=== PATIENT | male | born 1985 | race African-American/Black ===

== ENCOUNTER 2017-05-30 01:37 | Emergency (ER) | payer SELFPAY | END 2017-05-30 02:02 | disposition home or self-care (01) | LOC: NAV ERS 01:37 | DX: S39.012A Strain of muscle, fascia and tendon of lower back, initial encounter (principal); I10 Essential (primary) hypertension; Z79.899 Other long term (current) drug therapy; X58.XXXA Exposure to other specified factors, initial encounter | CPT/HCPCS: 99283 ==